=== PATIENT | male | born 1990 | race Caucasian/White ===

== ENCOUNTER 2016-10-23 05:08 | Emergency (ER) | payer SELFPAY ==
[2016-10-23 05:21] VITALS: BP 121/68; RESP 18; TEMP 97.3
[2016-10-23] MEDS ORDERED: ALBUTEROL NEBULIZED 2.5 MG/3 ML INHALATION STA (05:52)
--- NOTE | 2016-10-23 06:01 | ED ---
General Adult HPI - General Chief complaint: Upper Respiratory Infection Stated complaint: Cough/Vomiting x3days Time Seen by Provider: 10/23/16 05:28 Source: patient Mode of arrival: ambulatory Limitations: no limitations - History of Present Illness Initial comments: This patient is 26-year-old man who presents with complaint that he is coughing. He states that symptoms started on Friday. The cough was initially productive of white or yellow sputum. Over the past day to 2 that has resolved and he is having a dry cough. The patient states that now he is coughing to the extent that he will have vomiting as result. He is denying chest pain. He does state that it feels a little tight. He denies previous history of respiratory disease. Onset/Timin -: days(s) - Related Data Previous Rx's Medication Instructions Recorded Albuterol Inhaler [Ventolin Hfa 1 - 2 puff INHALATION Q6HR PRN #1 10/23/16 Inhaler] inhaler predniSONE 60 mg PO DAILY #30 tab 10/23/16 Allergies Allergy/AdvReac Type Severity Reaction Status Date / Time Penicillins Allergy Rash/Hives Verified 10/23/16 05:20 Review of Systems ROS Statement: Those systems with pertinent positive or pertinent negative responses have been documented in the HPI. ROS Other: All systems not noted in ROS Statement are negative. Constitutional: Denies: fever, chills ENT: Denies: throat pain, congestion Respiratory: Reports: cough, dyspnea. Denies: wheezes, hemoptysis Cardiovascular: Denies: chest pain, palpitations, edema, syncope Gastrointestinal: Reports: vomiting. Denies: abdominal pain, nausea, diarrhea Genitourinary: Denies: dysuria, hematuria Musculoskeletal: Denies: back pain Neurological: Denies: headache Past Medical History Past Medical History: No Reported History History of Any Multi-Drug Resistant Organisms: None Reported Past Surgical History: Adenoidectomy, Ear Surgery, Orthopedic Surgery, Tonsillectomy Additional Past Surgical History / Comment(s): Right wrist Past Psychological History: Depression Smoking Status: Current every day smoker Past Alcohol Use History: Rare Past Drug Use History: None Reported General Exam Limitations: no limitations General appearance: alert, in no apparent distress Head exam: Present: atraumatic, normocephalic Eye exam: Present: normal appearance. Absent: scleral icterus, conjunctival injection ENT exam: Present: normal oropharynx Neck exam: Present: normal inspection Respiratory exam: Present: wheezes. Absent: respiratory distress, rales, rhonchi, stridor Cardiovascular Exam: Present: normal rhythm, bradycardia (Rate approximately 56 at my exam), normal heart sounds. Absent: systolic murmur, diastolic murmur, rubs, gallop GI/Abdominal exam: Present: soft. Absent: distended, tenderness, guarding, rebound Extremities exam: Present: normal inspection, normal capillary refill. Absent: pedal edema, calf tenderness Back exam: Absent: CVA tenderness (R), CVA tenderness (L) Neurological exam: Present: alert Skin exam: Present: warm, dry, intact, normal color. Absent: rash Course Vital Signs 10/23/16 10/23/16 10/23/16 05:18 06:06 06:13 Temperature 97.3 F L Pulse Rate 56 L 64 60 Respiratory 18 Rate Blood Pressure 121/68 O2 Sat by Pulse 97 Oximetry Disposition Clinical Impression: Bronchitis Disposition: HOME SELF-CARE Condition: Fair Instructions: Acute Bronchitis (ED) Prescriptions: Albuterol Inhaler [Ventolin Hfa Inhaler] 1 - 2 puff INHALATION Q6HR PRN #1 inhaler PRN Reason: Wheezing predniSONE 60 mg PO DAILY #30 tab Referrals: None,Stated [Primary Care Provider] - 1-2 days
--- NOTE | 2016-10-23 06:12 | XR ---
EXAM: XR Chest, 2 Views CLINICAL HISTORY: Reason: Pain TECHNIQUE: Frontal and lateral views of the chest. COMPARISON: No relevant prior studies available. FINDINGS: Lungs: Unremarkable. No consolidation. Pleural space: No pleural effusion. No pneumothorax. Heart: Unremarkable. No cardiomegaly. Mediastinum: Unremarkable. Bones/joints: Unremarkable. IMPRESSION: No acute cardiopulmonary disease.
[2016-10-23 06:14] VITALS: PULSE 60
[2016-10-23] MEDS ORDERED: predniSONE 20 MG TAB PO STA (06:42)
== END 2016-10-23 07:00 | disposition home or self-care (01) ==
LOC: EC 05:08
DX: J40 Bronchitis, not specified as acute or chronic (principal); F17.200 Nicotine dependence, unspecified, uncomplicated; Z88.0 Allergy status to penicillin
CPT/HCPCS: 94640; 71020; 99283; J7512

== ENCOUNTER 2019-04-18 01:24 | Emergency (ER) | payer OTHER ==
[2019-04-18 01:48] VITALS: BP 137/82; PULSE 72; RESP 18; TEMP 98.2
[2019-04-18] MEDS ORDERED: PROPARACAINE 0.5% OPHTH DROPS 15 ML BTL LEFT EYE STA (01:53)
--- NOTE | 2019-04-18 02:04 | ED ---
Eye Problem HPI - General Chief complaint: Eye Problems Stated complaint: Eye Injury Time Seen by Provider: 04/18/19 01:49 Source: patient, family Mode of arrival: ambulatory Limitations: no limitations - History of Present Illness Initial comments: Patient is a 29-year-old male presenting to emergency Department with a chief complaint of eye pain. Patient reports he [place] "[place]" in [place] when a branch hit him on the left side of his face in his eye. Patient does report some blurry vision and tearing from his left eye. Patient does report eye redness but denies any bruising or swelling of the left eye. Patient reports pain is more burning in sensation. Patient denies any pain with extraocular movements. He denies taking any medication to alleviate the symptoms. Patient does not wear contact lenses. Tetanus is up-to-date. - Related Data Previous Rx's Medication Instructions Recorded RX: Albuterol Inhaler [Ventolin 1 - 2 puff INHALATION Q6HR PRN #1 10/23/16 Hfa Inhaler] inhaler RX: predniSONE 60 mg PO DAILY #30 tab 10/23/16 RX: Polymyxin B-Trimeth Sulf Ophth 1 drops BOTH EYES Q4H #1 bottle 04/18/19 [Polytrim Opthalmic] Allergies Allergy/AdvReac Type Severity Reaction Status Date / Time Penicillins Allergy Rash/Hives Verified 04/18/19 01:48 Review of Systems ROS Statement: Those systems with pertinent positive or pertinent negative responses have been documented in the HPI. ROS Other: All systems not noted in ROS Statement are negative. Past Medical History Past Medical History: No Reported History History of Any Multi-Drug Resistant Organisms: None Reported Past Surgical History: Adenoidectomy, Ear Surgery, Orthopedic Surgery, Tonsillectomy Additional Past Surgical History / Comment(s): Right wrist Past Psychological History: Depression Smoking Status: Current every day smoker Past Alcohol Use History: Rare Past Drug Use History: None Reported General Exam Limitations: no limitations General appearance: alert, in no apparent distress Head exam: Present: atraumatic, normocephalic, normal inspection Eye exam: Present: normal appearance, PERRL, EOMI, conjunctival injection, other (Corneal abrasion about 4 mm at 12:00 directly over the visual axis. Negative Ming sign. ). Absent: periorbital swelling, periorbital tenderness Pupils: Present: normal accommodation ENT exam: Present: normal exam, mucous membranes moist Neck exam: Present: normal inspection, full ROM Respiratory exam: Present: normal lung sounds bilaterally Cardiovascular Exam: Present: regular rate, normal rhythm, normal heart sounds Extremities exam: Present: normal inspection, full ROM Back exam: Present: normal inspection, full ROM Neurological exam: Present: alert, oriented X3 Psychiatric exam: Present: normal affect, normal mood Skin exam: Present: warm, dry, intact, normal color Course Vital Signs 04/18/19 01:44 Temperature 98.2 F Pulse Rate 72 Respiratory 18 Rate Blood Pressure 137/82 O2 Sat by Pulse 98 Oximetry Medical Decision Making - Medical Decision Making Patient is a 29-year-old male presenting to emergency Department with a chief complaint of left eye pain. Flash sustaining shows 4 mm corneal abrasion at 12:00 over the visual axis. This explains why the patient has blurry vision. Negative Ming sign. On numbing was performed with proparacaine. Patient given Polytrim eyedrops. Patient does not wear contact lenses. Tetanus is up-to-date. Patient advised to follow-up with ophthalmology. Strict return parameters were thoroughly discussed with patient was understanding and agreeable. Case discussed with physician. Disposition Clinical Impression: Corneal abrasion, left Disposition: HOME SELF-CARE Condition: Stable Instructions (If sedation given, give patient instructions): Abrasion (ED) Additional Instructions: Please take prescribed medication as directed. Please follow-up with ophthalmology. Please return to emergency department if symptoms worsen. Prescriptions: RX: Polymyxin B-Trimeth Sulf Ophth [Polytrim Opthalmic] 1 drops BOTH EYES Q4H #1 bottle Is patient prescribed a controlled substance at d/c from ED?: No Referrals: None,Stated [Primary Care Provider] - 1-2 days Herb Chacon MD [STAFF PHYSICIAN] - 1-2 days Time of Disposition: 02:03
== END 2019-04-18 02:10 | disposition home or self-care (01) ==
LOC: EC 01:24
DX: S05.02XA Injury of conjunctiva and corneal abrasion without foreign body, left eye, initial encounter (principal); F17.200 Nicotine dependence, unspecified, uncomplicated; Z88.0 Allergy status to penicillin; W20.8XXA Other cause of strike by thrown, projected or falling object, initial encounter; Y93.89 Activity, other specified; Y92.89 Other specified places as the place of occurrence of the external cause
CPT/HCPCS: 99283

== ENCOUNTER 2019-06-02 23:43 | Emergency (ER) | payer OTHER ==
[2019-06-02 23:52] VITALS: TEMP 98.2
[2019-06-03] MEDS ORDERED: IPRATROPIUM-ALBUTEROL 3 ML NEB INHALATION STA (00:27)
[2019-06-03] MEDS ORDERED: IBUPROFEN 600 MG TAB PO STA (00:28)
[2019-06-03] MEDS ORDERED: ONDANSETRON ODT 4 MG TAB PO STA (00:28)
--- NOTE | 2019-06-03 00:45 | XR ---
EXAMINATION TYPE: XR chest 2V DATE OF EXAM: 06/03/2019 COMPARISON: 10/23/2016 HISTORY: Cough. Difficulty breathing TECHNIQUE: FINDINGS: Heart is normal. Lungs are clear. Diaphragm is normal. Bony thorax appears normal. Pulmonar y vascularity is normal. IMPRESSION: Normal chest. No change.
--- NOTE | 2019-06-03 01:45 | ED ---
General Adult HPI - General Chief complaint: Headache Stated complaint: Diff Breathing Time Seen by Provider: 06/03/19 00:20 Source: patient, RN notes reviewed Mode of arrival: ambulatory Limitations: no limitations - History of Present Illness Initial comments: 29-year-old male presents emergency Department chief complaint of cough congestion shortness of breath headache or dizziness. Patient states she has not felt well over the last few days. Patient states that he woke up feeling short breath, noted wheezing. Patient does admit that he is a smoker. Patient denies any current nausea vomiting. He states he did have a recent episode of vomiting states he felt that he just drank some liquids too fast. He states that he presses on his chest hurts tremendously. He denies any trauma. Patient denies any current blurred vision doesn't some photophobia no neck pain or neck stiffness. - Related Data Previous Rx's Medication Instructions Recorded Albuterol Inhaler [Ventolin Hfa 1 - 2 puff INHALATION Q6HR PRN #1 10/23/16 Inhaler] inhaler predniSONE 60 mg PO DAILY #30 tab 10/23/16 Polymyxin B-Trimeth Sulf Ophth 1 drops BOTH EYES Q4H #1 bottle 04/18/19 [Polytrim Opthalmic] Albuterol Sulfate [Proair Hfa] 1 - 2 puff INHALATION Q4HR PRN #1 06/03/19 inhaler predniSONE 50 mg PO DAILY #4 tab 06/03/19 Allergies Allergy/AdvReac Type Severity Reaction Status Date / Time Penicillins Allergy Rash/Hives Verified 06/02/19 23:52 Review of Systems ROS Statement: Those systems with pertinent positive or pertinent negative responses have been documented in the HPI. ROS Other: All systems not noted in ROS Statement are negative. Past Medical History Past Medical History: No Reported History History of Any Multi-Drug Resistant Organisms: None Reported Past Surgical History: Adenoidectomy, Ear Surgery, Orthopedic Surgery, Tonsillectomy Additional Past Surgical History / Comment(s): Right wrist Past Psychological History: Depression Smoking Status: Current every day smoker Past Alcohol Use History: Rare Past Drug Use History: None Reported General Exam Limitations: no limitations General appearance: alert, in no apparent distress Head exam: Present: atraumatic, normocephalic, normal inspection Eye exam: Present: normal appearance, PERRL, EOMI. Absent: scleral icterus, conjunctival injection, periorbital swelling ENT exam: Present: normal exam, normal oropharynx, mucous membranes moist Neck exam: Present: normal inspection, full ROM. Absent: tenderness, meningismus, lymphadenopathy Respiratory exam: Present: wheezes. Absent: normal lung sounds bilaterally, respiratory distress, rales, rhonchi, stridor Cardiovascular Exam: Present: regular rate, normal rhythm, normal heart sounds. Absent: systolic murmur, diastolic murmur, rubs, gallop, clicks Neurological exam: Present: alert, oriented X3, CN II-XII intact Skin exam: Present: warm, dry, intact, normal color. Absent: rash Course Vital Signs 06/02/19 06/03/19 06/03/19 23:49 00:56 01:05 Temperature 98.2 F Pulse Rate 75 75 78 Respiratory 20 Rate Blood Pressure 120/82 O2 Sat by Pulse 95 Oximetry Medical Decision Making - Medical Decision Making X-rays unremarkable. Influenza is negative. Patient is improved at this time after DuoNeb treatment. Patient will be discharged with steroids, inhaler return parameters were discussed. - Lab Data Lab Results 06/03/19 Range/Units 01:06 Influenza Type A RNA Not Detected (Not Detectd) Influenza Type B (PCR) Not Detected (Not Detectd) Disposition Clinical Impression: Acute bronchitis with bronchospasm Disposition: HOME SELF-CARE Condition: Stable Instructions (If sedation given, give patient instructions): Acute Bronchitis (ED) Additional Instructions: Please return to the Emergency Department if symptoms worsen or any other concer ns. Prescriptions: predniSONE 50 mg PO DAILY #4 tab Albuterol Sulfate [Proair Hfa] 1 - 2 puff INHALATION Q4HR PRN #1 inhaler PRN Reason: difficulty in breathing Is patient prescribed a controlled substance at d/c from ED?: No Referrals: Harshad Duran MD [Primary Care Provider] - 1-2 days Time of Disposition: 02:18
[2019-06-03] MEDS ORDERED: predniSONE 50 MG TAB PO STA (02:14)
[2019-06-03 02:37] VITALS: BP 121/60; PULSE 80; RESP 18
== END 2019-06-03 02:37 | disposition home or self-care (01) ==
LOC: EC 23:43
DX: J21.9 Acute bronchiolitis, unspecified (principal); F17.200 Nicotine dependence, unspecified, uncomplicated; Z88.0 Allergy status to penicillin
CPT/HCPCS: 94640; 87502; 71046; 99284; J7512